=== PATIENT | female | born 2005 | race Caucasian/White ===

== ENCOUNTER 2024-06-02 12:42 | Emergency (ER) | payer OTHER ==
[2024-06-02] MEDS ORDERED: ONDANSETRON 4 MG (ODT) TAB ONE (13:42)
[2024-06-02 14:34] LABS: Specific Gravity > 1.030 (1.005-1.030); Sqamous Epithelial 20-50 /HPF (None Seen); Urine Bacteria <20 /HPF (<20); Urine Bilirubin NEGATIVE (Negative); Urine Blood Negative (Negative); Urine Clarity Extremely Turbid (Clear); Urine Color Yellow (Yellow); Urine Culture Reflex Order NOT NEEDED; Urine Glucose NEGATIVE (Negative); Urine Ketones NEGATIVE (Negative); Urine Microscopic Reflex YN ORDER UMIC; Urine Mucus 1+ /HPF (None Seen); Urine Nitrite NEGATIVE (Negative); Urine Protein 1+ (Negative); Urine RBC <5 /HPF (None Seen); Urine Urobilinogen Normal (Normal); Urine pH 5.5 (5.0-7.0)
[2024-06-02 14:35] LABS: Specific Gravity > 1.030 (1.005-1.030)
[2024-06-02 14:45] LABS: SARS-CoV-2 Antigen CONTROL BLUE LINE VIS/BG OK; SARS-CoV-2 Antigen Rapid Res Negative (Negative)
--- NOTE | 2024-06-02 15:09 | EDPHYS ---
Physician Documentation [facility] [place] Name: Cami Washington Age: 18 yrs Sex: Female : 2005 Arrival Date: 06/02/2024 Time: 12:42 Bed IW3 Private MD: ED Physician Wang Moser HPI: 06/02 13:30 This 18 yrs old Female presents to ER via Ambulatory with complaints of Vomiting. cp 13:30 The patient presents to the emergency department with vomiting, that is continuous, cp described as bilious. Onset: The symptoms/episode began/occurred last night. Possible causes: unknown. 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 - Infectious Disease History:: Denies. - Social history:: Smoking status: Patient denies any tobacco usage or history of. ROS: 13:35 Constitutional: Negative for chills, fever, cp 13:35 Eyes: Negative for injury, pain, redness, and discharge, cp 13:35 ENT: Negative for drainage from ear(s), ear pain, sore throat, difficulty swallowing, difficulty handling secretions, 13:35 Respiratory: Negative for cough, shortness of breath, wheezing, 13:35 Abdomen/GI: Positive for nausea, vomiting, Negative for diarrhea, constipation, 13:35 : Negative for urinary symptoms, 13:35 Neuro: Negative for altered mental status, dizziness, headache, weakness, 13:35 All other systems are negative, Exam: 13:40 Constitutional: The patient appears in no acute distress, alert, awake, non-toxic, well cp developed, well nourished, 13:40 Head/Face: Normocephalic, atraumatic. cp 13:40 Eyes: Periorbital structures: appear normal, Conjunctiva: normal, no exudate, no injection, Lids and lashes: appear normal, bilaterally, 13:40 ENT: External ear(s): are unremarkable, Ear canal(s): are normal, clear, TM's: bulging, is not appreciated, bilaterally, erythema, is not appreciated, Nose: is normal, Mouth: Lips: moist, Oral mucosa: moist, Posterior pharynx: Airway: no evidence of obstruction, patent, 13:40 Neck: ROM/movement: is normal, is supple, without pain, no range of motions limitations, 13:40 Chest/axilla: Inspection: normal, 13:40 Cardiovascular: Rate: tachycardic, Rhythm: regular, 13:40 Respiratory: the patient does not display signs of respiratory distress, Respirations: normal, no use of accessory muscles, no retractions, labored breathing, is not present, Breath sounds: are clear throughout, no decreased breath sounds, no stridor, no wheezing, 13:40 Abdomen/GI: Inspection: abdomen appears normal, Palpation: abdomen is soft and non-tender, in all quadrants, 13:40 Back: CVA tenderness, is absent, Vital Signs: 13:14 BP 100 / 72; Pulse 120; Resp 19; Temp 99(O); Pulse Ox 98% on R/A; MAP 83 mmHg; Weight tm6 49.9 kg; Height 5 ft. 6 in. ; Pain 1010; 13:14 Body Mass Index 17.75 (49.90 kg, 167.64 cm) - Percentile 4.6 % tm6 13:14 Pain Scale: Adult tm6 MDM: 13:20 Patient medically screened. 14:00 Differential diagnosis: gastritis, viral gastroenteritis, gastroenteritis, uti, cp influenza, COVID-19. 15:09 Data reviewed: vital signs, nurses notes, lab test result(s), and as a result, I will discharge patient. 15:09 I considered the following discharge prescriptions or medication management in the emergency department Medications were administered in the Emergency Department. See MAR. Counseling: I had a detailed discussion with the patient and/or guardian regarding the historical points, exam findings, and any diagnostic results supporting the discharge/admit diagnosis, lab results, to return to the emergency department if symptoms worsen or persist or if there are any questions or concerns that arise at home. Response to treatment: the patient's symptoms have mildly improved after treatment, and as a result, I will discharge patient. 06/02 13:25 Order name: Urinalysis w/ reflexes; Complete Time: 14:44 06/02 14:45 Interpretation: Normal except: [facility] Extremely Turbid; Urine SG > 1.030; UPROT 1+; UESTR cp 500; UWBC 10-20; SQEPI 20-50. 06/02 13:25 Order name: Test, Urine; Complete Time: 14:44 cp 06/02 14:45 Interpretation: Reviewed. cp 06/02 13:25 Order name: SARS RAPID; Complete Time: 15:08 cp 06/02 13:25 Order name: Influenza Screen (a \T\ B); Complete Time: 15:08 cp 06/02 15:08 Interpretation: Reviewed. cp Administered Medications: 14:02 Drug: Ondansetron PO 4 mg PO once Route: PO; 15:31 Follow up: Response: No adverse reaction tm6 Disposition Summary: 06/02/24 15:09 Discharge Ordered Notes: Location: Home cp Problem: new cp Symptoms: have improved cp Condition: Stable cp Diagnosis - Influenza due to other identified influenza virus with gastrointestinal cp manifestations - Nausea with vomiting, unspecified cp Followup: cp - With: Private Physician - When: 2 - 3 days - Reason: Worsening of condition Discharge Instructions: - Discharge Summary Sheet cp - Influenza, Adult cp - Nausea and Vomiting, Adult cp Forms: - Medication Reconciliation Form cp - Antibiotic Education cp - Prescription Opioid Use cp - Patient Portal Instructions cp - Leadership Thank You Letter cp Prescriptions: - Zofran 4 mg Oral Tablet - take 1 tablet ORAL route every 12 hours As needed; 20 tablet; Refills: 0, cp Product Selection Permitted - Tamiflu 75 mg Oral capsule - take 1 tablet ORAL route every 12 hours for 5 days; 10 tablet; Refills: 0, cp Product Selection Permitted Signatures: Dispatcher [employer] Elise Edward, RN RN iw Wang Del Rio PA PA cp Masterson, Tawney RN RN tm6
--- NOTE | 2024-06-02 15:09 | ER ---
Nurse's Notes [facility] Name: Cami Washington Age: 18 yrs Sex: Female : 2005 Arrival Date: 06/02/2024 Time: 12:42 Bed IW3 Private MD: Diagnosis: Influenza due to other identified influenza virus with gastrointestinal manifestations;Nausea with vomiting, unspecified Presentation: 06/02 13:14 Chief complaint: Patient states: throwing up since 8pm last night. Denies diarrhea or tm6 fever. Coronavirus screen: Vaccine status: Patient reports being unvaccinated. Ebola Screen: Patient negative for fever greater than or equal to 101.5 degrees Fahrenheit, and additional compatible Ebola Virus Disease symptoms Patient denies exposure to infectious person. Patient denies travel to an Ebola-affected area in the 21 days before illness onset. No symptoms or risks identified at this time. Initial Sepsis Screen: Does the patient meet any 2 criteria? HR > 90 bpm. Does the patient have a suspected source of infection? No. Patient's initial sepsis screen is negative. Risk Assessment: Do you want to hurt yourself or someone else? Patient reports no desire to harm self or others. Onset of symptoms was June 01, 2024 at 20:00. 13:14 Method Of Arrival: Ambulatory tm6 13:14 Acuity: OMAYRA 3 tm6 Triage Assessment: 13:17 General: Appears in no apparent distress. Behavior is calm, cooperative. Pain: tm6 Complains of pain in abdomen Pain currently is 10 out of 10 on a pain scale. Pain began 1 day ago. EENT: No signs and/or symptoms were reported regarding the EENT system. Neuro: Level of Consciousness is awake, alert, obeys commands, Oriented to person, place, time, situation. Cardiovascular: Patient's skin is warm and dry. Respiratory: Airway is patent Respiratory effort is even, unlabored, Respiratory pattern is regular, symmetrical. GI: Abdomen is flat, non-distended, Reports nausea, vomiting, since 8pm yesterday. : No signs and/or symptoms were reported regarding the genitourinary system. Derm: No signs and/or symptoms reported regarding the dermatologic system. Musculoskeletal: No signs and/or symptoms reported regarding the musculoskeletal system. 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 - Infectious Disease History:: Denies. - Social history:: Smoking status: Patient denies any tobacco usage or history of. Screenin:30 [facility] ED Fall Risk Assessment (Adult) History of falling in the last 3 months, tm6 including since admission No falls in past 3 months (0 pts) Confusion or Disorientation No (0 pts) Intoxicated or Sedated No (0 pts) Impaired Gait No (0 pts) Mobility Assist Device Used No (0 pt) Altered Elimination No (0 pt) Score/Fall Risk Level 0 - 2 = Low Risk Oriented to surroundings, Maintained a safe environment, Educated pt \T\ family on fall prevention, incl call for assistance when getting out of bed. Abuse screen: Denies threats or abuse. Denies injuries from another. Nutritional screening: No deficits noted. Tuberculosis screening: No symptoms or risk factors identified. Assessment: 15:30 Reassessment: see triage assessment. tm6 Vital Signs: 13:14 BP 100 / 72; Pulse 120; Resp 19; Temp 99(O); Pulse Ox 98% on R/A; MAP 83 mmHg; Weight tm6 49.9 kg; Height 5 ft. 6 in. ; Pain 10/10; 13:14 Body Mass Index 17.75 (49.90 kg, 167.64 cm) - Percentile 4.6 % tm6 13:14 Pain Scale: Adult tm6 ED Course: 12:50 Patient arrived in ED. mg5 13:17 Triage completed. tm6 13:17 Arm band placed on left wrist. tm6 13:20 Wang Del Rio PA is PHCP. cp 13:20 Wang Msoer MD is Attending Physician. cp 14:02 Wendy Hensley NP is Primary Nurse. rh1 15:30 Patient has correct armband on for positive identification. Provided Education on: use tm6 of prescriptions. 15:30 No provider procedures requiring assistance completed. Patient did not have IV access tm6 during this emergency room visit. Administered Medications: 14:02 Drug: Ondansetron PO 4 mg PO once Route: PO; iw 15:31 Follow up: Response: No adverse reaction tm6 Medication: 15:30 VIS not applicable for this client. tm6 Outcome: 15:09 Discharge ordered by . amy 15:47 Discharged to home ambulatory, with family, tm6 15:47 Condition: stable 15:47 Discharge instructions given to patient, Instructed on discharge instructions, follow up and referral plans. medication usage, Demonstrated understanding of instructions, follow-up care, medications, Prescriptions given X 2, 15:48 Patient left the ED. tm6 Signatures: Elise Roe RN RN Wendy Ahumada NP ELECTRIC SIGN ASSEMBLER rh1 Wang Del Rio, PA PA amy Vela Selma mg5 Marcela Solomon RN RN tm6
[2024-06-02 15:58] VITALS: BP 100/72; TEMP 99; O2SAT 98
== END 2024-06-02 15:48 | disposition home or self-care (01) ==
LOC: ER 12:42
DX: J10.2 Influenza due to other identified influenza virus with gastrointestinal manifestations (principal); Z11.52 Encounter for screening for COVID-19
CPT/HCPCS: 81001; 36415; 81025; 87804 ×2; 99283; 87811; Q0162